=== PATIENT | male | born 1960 | race Caucasian/White ===

== ENCOUNTER → 2021-04-13 13:54 | Outpatient (BNVA) | payer OTHER, SELFPAY | PROVIDERS: PCP Internal Medicine; Visit Provider Urology ==

== ENCOUNTER 2021-04-15 10:31 | Outpatient (REF) | payer OTHER, SELFPAY ==
[2021-04-15 11:57] LABS: Prostate Specific Antigen 8.62 ng/mL (<0.05-4.0)
== END 2021-04-15 10:32 | disposition home or self-care (01) ==
LOC: HO.LAB 10:31
PROVIDERS: PCP Internal Medicine; Visit Provider Urology
DX: Z12.5 Encounter for screening for malignant neoplasm of prostate (principal); R97.20 Elevated prostate specific antigen [PSA]
CPT/HCPCS: 36415; 84153

== ENCOUNTER 2021-05-10 11:33 | Outpatient (REF) | payer OTHER, SELFPAY ==
--- NOTE | ~2021-05-10 | US_ITS ---
EXAMINATION: US PELVIS LIMITED (BLADDER) CLINICAL INFORMATION: Poor urinary stream. COMPARISON: None TECHNIQUE: Real-time imaging of the bladder. FINDINGS: BLADDER: Well distended and normal. Bilateral ureteral jets are demonstrated. Prevoid bladder volume is 253 mL. Postvoid bladder volume is 54.4 mL. Prostate volume is 65.7 mL. There is a hypoechoic area seen in the prostate gland measuring 1.5 x 1.4 x 1.5 cm likely small nodule. US/US bladder IMPRESSION: Small postvoid residual bladder volume. Normal bilateral ureteral jets. No bladder wall thickening seen. Small hypoechoic area in the prostate gland.
== END 2021-05-10 11:34 | disposition home or self-care (01) ==
LOC: HO.US 11:33
PROVIDERS: Visit Provider Urology
DX: R39.12 Poor urinary stream (principal); R35.1 Nocturia
CPT/HCPCS: 76857

== ENCOUNTER 2023-05-02 10:28 | Outpatient (AMB) | payer OTHER, SELFPAY ==
--- NOTE | 2023-05-02 10:47 | HO.SPINEOV ---
Intake Intake Visit Reasons: Low back pain into rt. leg Intake Note: Mr. Zelaya is here today c/o low back pain radiating into his right leg. MRI done @ [facility]/brought disc. Data Security Coordinator Required: No Allergies No Known Allergies Allergy (Verified 07/16/20 12:39) Assessment & Plan Assessment & Plan Plan Dear colleague, On 05/02/2023, I saw Michele Zelaya with a chief complaint of right foot numbness and right buttock pain History of present illness: this 63-year-old male developed severe pain radiating down his right leg to his foot in August 2022. He received several injections that took away most of the pain but he continues to have numbness of his right foot. Initially, he could only walk short distances or stand for short period of time before the severe pain started with the associated numbness. Now his main symptom is numbness in his foot Coding Diagnoses
--- NOTE | 2023-05-02 17:50 | HO.SPINEOV ---
Intake Intake Visit Reasons: Low back pain into rt. leg Allergies No Known Allergies Allergy (Verified 07/16/20 12:39) Assessment & Plan Assessment & Plan (1) Neuroforaminal stenosis of lumbar spine: Code(s): M48.061 - Spinal stenosis, lumbar region without neurogenic claudication (2) Lumbar radiculopathy, right: Code(s): M54.16 - Radiculopathy, lumbar region Plan Dear colleague Thank you for referring Michele Zelaya to the office today with a chief complaint of right foot numbness and right buttock pain History of present illness: this 63-year-old male developed severe pain radiating down his right leg to his foot in August 2022. He received several injections that took away most of the pain but he continues to have numbness of his right foot. Initially, he could only walk short distances or stand for short period of time before the severe pain started with the associated numbness. Now his main symptom is numbness in his foot with mild discomfort in his right buttock after longer period of walking or standing. Sitting down relieves the symptoms with the exception of the numbness of his foot. He saw 3 other surgeons for an opinion that all offered him a lumbar fusion surgery ranging from L4-S1 fusion to L5-S1 fusion. He comes for a 4th opinion. The following conservative treatment options were tried without success antiinflammatories, tylenol, physical therapy, cortisone shots PMH: Prostate hypertrophy, hypercholesterolemia Social history: Nonsmoker Medications: Statin Allergies: NKDA Physical Exam: Pleasant male. He ambulates without difficulties. Straight leg raise negative. Motor exam is 5 5 throughout. There is mild numbness over the right foot. Reflexes are symmetrically intact. No pathological reflexes. Radiological Studies: MRI done at [facility] on 10/27/2022 shows multilevel degenerative disc disease but more importantly there is severe bilateral L5 foraminal stenosis caused by ligaments and disc bulging. Impression/Plan: This patient is suffering from a right unilateral neurogenic claudication due to severe right L5 neuroforaminal stenosis. He denies significant back pain. I offered him an L5 foraminotomy to decompress the right L5 nerve root in the absence of back pain. This is a same-day surgery with a quick recovery. I would like to preserve a fusion for patients with additional severe back pain or not responding to a lumbar laminotomy/foraminotomy. If this is the case, then I would recommend an anterior lumbar interbody fusion L5-S1 in this patient to indirectly decompress his foramina and nerve roots. His symptoms are relatively mild at the moment and therefore I would not joy into a surgery. He will return to the surgeon of his preference when the symptoms are severe enough to undergo a procedure. Thank you for allowing me to participate in your patients care. total time spent was 60 minutes in counseling ,coordination of plan, personal review of imaging, surgical decision making and subsequent plan Oscar Galvez MD, PhD Spine Fellowship Trained Neurosurgeon Director, [facility] Coding Level of Care Code New Pt Level 5 (28557) Diagnoses Neuroforaminal stenosis of lumbar spine M48.061 Lumbar radiculopathy, right M54.16
== END 2023-05-02 12:19 | disposition home or self-care (01) ==
PROVIDERS: PCP Internal Medicine; Visit Provider Neurological Surgery
DX: M48.061 Spinal stenosis, lumbar region without neurogenic claudication (principal); M54.16 Radiculopathy, lumbar region
CPT/HCPCS: 99205

== ENCOUNTER → 2023-05-02 10:28 | Outpatient (BNVA) | payer OTHER, SELFPAY | PROVIDERS: PCP Internal Medicine; Visit Provider Neurological Surgery ==

== ENCOUNTER 2023-11-13 13:32 | Outpatient (AMB) | payer OTHER, SELFPAY ==
--- NOTE | 2023-11-13 13:38 | HO.SPINEOV ---
Intake Intake Visit Reasons: follow up/discuss sx Intake Note: Mr. Zelaya is here today to Follow up and discuss sx Plush Cutter Required: No Allergies No Known Allergies Allergy (Verified 07/16/20 12:39) Assessment & Plan Assessment & Plan (1) Disc disease, degenerative, lumbar or lumbosacral: Code(s): M51.37 - Other intervertebral disc degeneration, lumbosacral region (2) Neuroforaminal stenosis of lumbar spine: Code(s): M48.061 - Spinal stenosis, lumbar region without neurogenic claudication Plan Dear colleague, On 11/13/2023, I saw for follow-up Mr. Michele Zelaya. Initially, I saw him for right unilateral neurogenic claudication for which I offered him a right L5 foraminotomy. Today states that the right side pain is gone. It now switched to the left side where there is discomfort in the left hip area with walking and standing and mild numbness of the left foot. The numbness in the right foot is still present. He is scheduled to undergo a left knee replacement in January. We reviewed his MRI scan again in detail which shows multilevel advanced degenerative disc disease, including L5-S1 where it causes severe bilateral L5 foraminal stenosis. We had an extensive discussion about the type of surgery and timing of surgery if indicated. I advised him to obviously undergo the left knee replacement 1st to see if that also will address his new left unilateral claudication symptoms. If not, and then the intensity of symptoms will determine a surgical indication. I do think at this time a anterior lumbar interbody fusion with anterior instrumentation will be the least invasive procedure and most successful intervention to address the bilateral L5 foraminal stenosis. A bilateral foraminotomy we will until destruction of posterior musculature and bone structures with a risk that the symptoms will only be relief temporarily. He will contact my office if the symptoms persist to schedule a surgical date. I spent 45 minutes in this consult reviewing imaging and discussing plan of care Oscar Galvez MD, PhD Spine Fellowship Trained Neurosurgeon Director, [facility] Coding Level of Care Code Est Pt Level 5 (69460) Diagnoses Disc disease, degenerative, lumbar or lumbosacral M51.37 Neuroforaminal stenosis of lumbar spine M48.061
== END 2023-11-13 14:20 | disposition home or self-care (01) ==
LOC: HO.HNS 13:33
PROVIDERS: PCP Internal Medicine; Visit Provider Neurological Surgery
DX: M51.37 Other intervertebral disc degeneration, lumbosacral region (principal); M48.061 Spinal stenosis, lumbar region without neurogenic claudication
CPT/HCPCS: 99215

== ENCOUNTER → 2023-11-13 13:32 | Outpatient (BNVA) | payer OTHER, SELFPAY | PROVIDERS: PCP Internal Medicine; Visit Provider Neurological Surgery ==

== ENCOUNTER 2024-09-24 13:39 | Outpatient (AMB) | payer OTHER, SELFPAY ==
--- NOTE | 2024-09-24 13:53 | A.SPINEOV_ITS ---
Intake Visit Reasons: F/u for Low back pain Intake Note: Mr. Zelaya is here today to F/u on his Low back pain. Server Service Assistant Required: No Allergies No Known Allergies Allergy (Verified 09/24/24 13:53) Assessment & Plan Assessment & Plan (1) Neuroforaminal stenosis of lumbar spine: Code(s): M48.061 - Spinal stenosis, lumbar region without neurogenic claudication Category: Medical Plan Dear colleague, On 09/24/2024 I saw for follow-up Michele Zelaya. He was previously evaluated for neurogenic claudication and was advised to undergo an anterior lumbar interbody fusion to indirectly decompress the L5 nerve roots bilaterally if the symptoms started to interfere with his daily activities. In the meantime he had his knee replaced with good success. He denies pain in his back or legs. He has mild numbness on the top of the feet which is steady. Usually the indication for surgery is pain and therefore I advised the patient not to undergo any type of lumbar surgery until pain arises. He will return to my office as needed. I spent 25 minutes in his consult to discuss symptoms and answering questions. Oscar Galvez MD, PhD Spine Fellowship Trained Neurosurgeon Director, [facility] Coding Level of Care Code Est Pt Level 3 (03285) Diagnoses Neuroforaminal stenosis of lumbar spine M48.061
== END 2024-09-24 14:51 | disposition home or self-care (01) ==
PROVIDERS: PCP Internal Medicine; Visit Provider Neurological Surgery
DX: M48.061 Spinal stenosis, lumbar region without neurogenic claudication (principal)
CPT/HCPCS: 99213

== ENCOUNTER → 2024-09-24 13:39 | Outpatient (BNVA) | payer OTHER, SELFPAY | PROVIDERS: PCP Internal Medicine; Visit Provider Neurological Surgery ==